=== PATIENT | female | born 1970 | race Caucasian/White ===

== ENCOUNTER 2024-01-05 06:28 | Emergency (ER) | payer BC, SELFPAY ==
[2024-01-05 06:39] VITALS: BP 171/92; PULSE 107; RESP 20; TEMP 36.3; O2SAT 98; BMI 46.0
[2024-01-05] MEDS: IPRATROPIUM/ALBUTEROL SULFATE 3 ML AMPUL.NEB IH (06:50)
[2024-01-05 06:51] VITALS: PULSE 105; O2SAT 98
[2024-01-05 06:56] VITALS: O2SAT 95
[2024-01-05 06:58] LABS: Adenovirus NOT DETECTED (NOT DETECTE); Bordetella parapertussis NOT DETECTED (NOT DETECTE); Coronavirus 229E NOT DETECTED (NOT DETECTE); Coronavirus HKU1 NOT DETECTED (NOT DETECTE); Coronavirus NL63 NOT DETECTED (NOT DETECTE); Coronavirus OC43 NOT DETECTED (NOT DETECTE); Human Metapneumovirus NOT DETECTED (NOT DETECTE); Human Rhinovirus/Enterovirus NOT DETECTED (NOT DETECTE); Influenza A NOT DETECTED (NOT DETECTE); Influenza B NOT DETECTED (NOT DETECTE); Mycoplasma pneumoniae NOT DETECTED (NOT DETECTE); Parainfluenza Virus 1 NOT DETECTED (NOT DETECTE); Parainfluenza Virus 2 NOT DETECTED (NOT DETECTE); Parainfluenza Virus 3 NOT DETECTED (NOT DETECTE); Parainfluenza Virus 4 NOT DETECTED (NOT DETECTE); Respiratory Syncytial Virus NOT DETECTED (NOT DETECTE); SARS-CoV-2 NOT DETECTED (NOT DETECTE)
--- NOTE | 2024-01-05 07:19 | XR_ITS ---
The [address] [address] Patient Name: MOOK JOHNSON MRN: [id number] date: 1970 Sex: F Assigned Patient Location: ER Current Patient Location: ED.MAIN Accession/Order Number: [id number] Exam Date: 01/05/2024 07:23 Report Date: 01/05/2024 07:44 At the request of: TONYA BRISENO Procedure: XR chest 1V EXAMINATION: XR chest 1V HISTORY: SOB COMPARISON: No relevant comparison available. TECHNIQUE: AP portable FINDINGS: LUNGS: No significant pulmonary parenchymal abnormalities. VASCULATURE: No increased pulmonary vasculature. PLEURA: No pneumothorax, effusion, or pleural thickening. CARDIAC: No cardiomegaly or cardiac silhouette abnormality. MEDIASTINUM: No visible mass or adenopathy. BONES: No fracture or visible bone lesion. OTHER: Negative. XR/XR chest 1V IMPRESSION: No acute cardiopulmonary process Electronically authenticated by: MAO PONCE Date: 01/05/2024 07:44
--- NOTE | 2024-01-05 07:19 | ED.SOB1 ---
HPI - SOB/Dyspnea General Chief Complaint: Shortness of Breath/Dyspnea Stated Complaint: COUGH Time Seen by Provider: 01/05/24 07:03 Source: patient Mode of arrival: walk-in Limitations: no limitations History of Present Illness HPI Narrative: 53-year-old female presents for cough. She has been sick for about 16 days but has gotten worse in the last week. The cough is generally nonproductive. Her voice is now hoarse. No hemoptysis and no known fever. No vomiting or diarrhea. She has had some sinus pressure as well. Related Data Home Medications ?Medication ?Instructions ?Recorded ?Confirmed alprazolam 0.5 mg tablet 0.5 mg PO TID PRN anxiety 01/05/24 01/05/24 amlodipine 5 mg tablet 5 mg PO DAILY 01/05/24 01/05/24 aspirin 81 mg chewable tablet 81 mg PO DAILY 01/05/24 01/05/24 (Aspirin Childrens) fluocinonide 0.05 % topical 1 applic topical DAILY 01/05/24 01/05/24 solution ketoconazole 2 % topical cream 1 applic topical DAILY 01/05/24 01/05/24 levothyroxine 175 mcg tablet 175 mcg PO DAILY 01/05/24 01/05/24 losartan 50 mg tablet 50 mg PO DAILY 01/05/24 01/05/24 metronidazole 1 % topical gel 1 applic topical DAILY 01/05/24 01/05/24 pantoprazole 40 mg tablet,delayed 40 mg PO DAILY 01/05/24 01/05/24 release Previous Rx's ?Medication ?Instructions ?Recorded albuterol sulfate 90 mcg/actuation 2 inh inhalation Q4H PRN shortness 01/05/24 aerosol inhaler of breath or wheezing #8.5 grams benzonatate 100 mg capsule 100 mg PO TID PRN cough #20 caps 01/05/24 prednisone 10 mg tablet See Rx Instructions .Route 01/05/24 .COMPLEX #30 tabs Allergies Allergy/AdvReac Type Severity Reaction Status Date / Time promethazine [From Phenergan] AdvReac Verified 01/05/24 06:44 Review of Systems ROS Narrative A ten point review of systems is negative except as noted above. Exam Narrative Exam Narrative: Nurses note and vital signs reviewed and patient is not hypoxic. General: The patient appears in no apparent respiratory distress. Patient is resting comfortably on cart. Skin: Warm, dry, no pallor noted. There is no rash noted. Head: Normocephalic, atraumatic Eye: Normal conjunctiva, no drainage Ears, Nose, Mouth, and Throat: oral mucosa is moist. Nares patent. Her voice is hoarse. Cardiovascular: Regular Rate and Rhythm Respiratory: Patient is in no distress, no accessory muscle use, lungs are clear to auscultation, no wheezing, rales or rhonchi. Back: non-tender GI: Soft and nontender Musculoskeletal: No joint swelling Neurological: A&O, normal speech Psychiatric: Cooperative Constitutional Vital Signs, click to edit/add: Last Vital Signs Temp 97.4 F L 01/05/24 06:39 Pulse 105 H 01/05/24 06:51 Resp 20 01/05/24 06:39 BP 171/92 H 01/05/24 06:39 Pulse Ox 95 01/05/24 06:56 O2 Del Method Room Air 01/05/24 06:56 Course Vital Signs Vital signs: Vital Signs Temperature 97.4 F L 01/05/24 06:39 Pulse Rate 107 H 01/05/24 06:39 Respiratory Rate 20 01/05/24 06:39 Blood Pressure 171/92 H 01/05/24 06:39 Pulse Oximetry 98 01/05/24 06:39 Oxygen Delivery Method Room Air 01/05/24 06:39 Temperature 97.4 F L 01/05/24 06:39 Pulse Rate 105 H 01/05/24 06:51 Respiratory Rate 20 01/05/24 06:39 Blood Pressure 171/92 H 01/05/24 06:39 Pulse Oximetry 95 01/05/24 06:56 Oxygen Delivery Method Room Air 01/05/24 06:56 MDM - SOB/Dyspnea MDM Narrative Medical decision making narrative: Respiratory panel and chest x-ray are negative. She was given IV Solu-Medrol and aerosol treatment. She was offered admission but does not feel that she needs it. She is discharged home on prednisone and Tessalon and albuterol. We discussed the need for an antibiotic and neither she nor I feel that she needs an antibiotic at this point. Treatment diagnosis and follow-up were discussed thoroughly Differential Diagnosis Differential diagnosis: Likely community acquired pneumonia and other (COVID, viral illness, influenza) Lab Data Attestation: I reviewed the patient's lab results. Labs: Lab Results 01/05/24 01/05/24 Range/Units 06:42 07:48 WBC 12.4 H (4.0-11.0) 10^3/uL RBC 4.35 (4.20-5.40) 10^6/uL Hgb 14.2 (12.0-16.0) g/dL Hct 41.2 (36.0-48.0) % MCV 94.7 (81.0-99.0) fL MCH 32.6 (26.7-34.0) pg MCHC 34.5 (29.9-35.2) g/dL RDW 11.9 (11.0-15.0) % Plt Count 359 (150-450) 10^3/uL MPV 9.8 (9.5-13.5) fL Neut % (Auto) 68.9 (43.0-75.0) % Lymph % (Auto) 20.9 (20.5-60.0) % [place] % (Auto) 7.5 (1.7-12.0) % Eos % (Auto) 1.4 (0.9-7.0) % Baso % (Auto) 0.6 (0.2-2.0) % Neut # (Auto) 8.5 H (1.4-6.5) 10^3/uL Lymph # (Auto) 2.6 (1.2-3.8) 10^3/uL [place] # (Auto) 0.9 H (0.3-0.8) 10^3/uL Eos # (Auto) 0.2 (0.0-0.7) 10^3/uL Baso # (Auto) 0.1 (0.0-0.1) 10^3/uL Abs Immat Gran (auto) 0.09 H (0.00-0.03) 10^3/uL Imm/Tot Granulo (auto) 0.7 H (0.0-0.5) % Sodium 140 (136-145) mmol/L Potassium 3.4 L (3.5-5.1) mmol/L Chloride 103 (98-107) mmol/L Carbon Dioxide 22.8 (21.0-32.0) mmol/L Anion Gap 17.6 BUN 14.0 (7.0-18.0) mg/dL Creatinine 1.02 (0.55-1.02) mg/dL Est GFR ( Amer) >60 (>=60) Est GFR (Non-Af Amer) 57 L (>=60) BUN/Creatinine Ratio 13.7 Glucose 109 H (74-106) mg/dL Calcium 9.2 (8.5-10.1) mg/dL Adenovirus (PCR) Not detected (NOT DETECTE) C. pneumoniae DNA (PCR) Not detected (NOT DETECTE) Coronavirus Type OC43 Not detected (NOT DETECTE) Coronavirus Type HKU1 Not detected (NOT DETECTE) Coronavirus Type 229E Not detected (NOT DETECTE) Coronavirus Type NL63 Not detected (NOT DETECTE) Human Metapneumovir PCR Not detected (NOT DETECTE) M. pneumoniae (PCR) Not detected (NOT DETECTE) Parainfluenza PCR Not detected (NOT DETECTE) Parainfluenza 2 (PCR) Not detected (NOT DETECTE) Parainfluenza 3 (PCR) Not detected (NOT DETECTE) Parainfluenza 4 (PCR) Not detected (NOT DETECTE) RSV (RT-PCR) Not detected (NOT DETECTE) Entero/Rhino (PCR) Not detected (NOT DETECTE) SARS-CoV-2 (PCR) Not detected (NOT DETECTE) Bordetella pertussis (PCR) Not detected (NOT DETECTE) B parapertussis DNA PCR Not detected (NOT DETECTE) Influenza Type A (PCR) Not detected (NOT DETECTE) Influenza Type B (PCR) Not detected (NOT DETECTE) Imaging Data Chest x-ray: Radiologist's impression: ITS Impressions Chest X-Ray 01/05/24 07:19 IMPRESSION: No acute cardiopulmonary process Electronically authenticated by: MAO PONCE Date: 01/05/2024 07:44 Discharge Plan Discharge Stand Alone Forms: Portal Instructions Chief Complaint: Shortness of Breath/Dyspnea Clinical Impression: Viral URI Patient Disposition: Home, Self-Care Time of Disposition Decision: 08:34 Condition: Good Mode of Transportation: Private Vehicle Prescriptions / Home Meds: New prednisone 10 mg tablet See Rx Instructions .ROUTE .COMPLEX Qty: 30 0RF Rx Instructions: 4 by mouth daily for three days then 3 by mouth daily for three days then 2 by mouth daily for three days then 1 by mouth daily for three days benzonatate 100 mg capsule 100 mg PO TID PRN (Reason: cough) Qty: 20 0RF albuterol sulfate 90 mcg/actuation HFA aerosol inhaler 2 inh inhalation Q4H PRN (Reason: shortness of breath or wheezing) Qty: 8.5 0RF No Action alprazolam 0.5 mg tablet 0.5 mg PO TID PRN (Reason: anxiety) amlodipine 5 mg tablet 5 mg PO DAILY fluocinonide 0.05 % solution 1 applic TOPICAL DAILY levothyroxine 175 mcg tablet 175 mcg PO DAILY losartan 50 mg tablet 50 mg PO DAILY pantoprazole 40 mg tablet,delayed release (DR/EC) 40 mg PO DAILY metronidazole 1 % gel 1 applic TOPICAL DAILY ketoconazole 2 % cream 1 applic TOPICAL DAILY aspirin [Aspirin Childrens] 81 mg tablet,chewable 81 mg PO DAILY Print Language: [place] Instructions: Upper Respiratory Infection (ED) Referrals: Physician,Non-Staff, MD [Primary Care Provider] - 1 week
[2024-01-05] MEDS: METHYLPREDNISOLONE SOD SUCC PF 125 MG/2 ML VIAL IVP (08:00)
[2024-01-05 08:01] LABS: Basophils Absolute Auto 0.1 10^3/uL (0.0-0.1); Basophils Percent Auto 0.6 % (0.2-2.0); Eosinophils Absolute Auto 0.2 10^3/uL (0.0-0.7); Eosinophils Percent Auto 1.4 % (0.9-7.0); Hematocrit 41.2 % (36.0-48.0); Hemoglobin 14.2 g/dL (12.0-16.0); Immature Granulocytes Abs Auto 0.09 10^3/uL (0.00-0.03); Immature Granulocytes Pct Auto 0.7 % (0.0-0.5); Lymphocytes Absolute Auto 2.6 10^3/uL (1.2-3.8); Lymphocytes Percent Auto 20.9 % (20.5-60.0); Mean Corpuscular HGB Conc 34.5 g/dL (29.9-35.2); Mean Corpuscular Hemoglobin 32.6 pg (26.7-34.0); Mean Corpuscular Volume 94.7 fL (81.0-99.0); Mean Platelet Volume 9.8 fL (9.5-13.5); Monocytes Absolute Auto 0.9 10^3/uL (0.3-0.8); Monocytes Percent Auto 7.5 % (1.7-12.0); Neutrophils Absolute Auto 8.5 10^3/uL (1.4-6.5); Neutrophils Percent Auto 68.9 % (43.0-75.0); Platelet Count 359 10^3/uL (150-450); Red Blood Count 4.35 10^6/uL (4.20-5.40); Red Cell Distribution Width 11.9 % (11.0-15.0); White Blood Count 12.4 10^3/uL (4.0-11.0)
[2024-01-05 08:08] LABS: Anion Gap 17.6; BUN Creatinine Ratio 13.7; Calcium 9.2 mg/dL (8.5-10.1); Carbon Dioxide 22.8 mmol/L (21.0-32.0); Chloride 103 mmol/L (98-107); Estimated GFR (African America >60 (>=60); Estimated GFR (Non-African Ame 57 (>=60); Glucose 109 mg/dL (74-106); Potassium 3.4 mmol/L (3.5-5.1); Sodium 140 mmol/L (136-145)
== END 2024-01-05 08:42 | disposition home or self-care (01) ==
PROVIDERS: Internal Medicine; Emergency Provider Emergency Medicine
DX: J06.9 Acute upper respiratory infection, unspecified (principal); Z20.822 Contact with and (suspected) exposure to COVID-19; Z79.82 Long term (current) use of aspirin; Z79.899 Other long term (current) drug therapy; Z79.890 Hormone replacement therapy
CPT/HCPCS: 0202U; 36415; 71045; 80048; 85025; 94640; 96374; 99284; J2930

== ENCOUNTER 2024-03-28 07:33 | Outpatient (OUT) | payer BC, SELFPAY ==
[2024-03-28 07:56] LABS: Basophils Absolute Auto 0.1 10^3/uL (0.0-0.1); Basophils Percent Auto 0.9 % (0.2-2.0); Eosinophils Absolute Auto 0.1 10^3/uL (0.0-0.7); Eosinophils Percent Auto 1.1 % (0.9-7.0); Hematocrit 42.9 % (36.0-48.0); Hemoglobin 14.7 g/dL (12.0-16.0); Immature Granulocytes Abs Auto 0.03 10^3/uL (0.00-0.03); Immature Granulocytes Pct Auto 0.3 % (0.0-0.5); Lymphocytes Percent Auto 30.9 % (20.5-60.0); Mean Corpuscular HGB Conc 34.3 g/dL (29.9-35.2); Mean Corpuscular Hemoglobin 32.5 pg (26.7-34.0); Mean Corpuscular Volume 94.7 fL (81.0-99.0); Mean Platelet Volume 9.7 fL (9.5-13.5); Monocytes Absolute Auto 0.6 10^3/uL (0.3-0.8); Monocytes Percent Auto 6.5 % (1.7-12.0); Neutrophils Absolute Auto 5.8 10^3/uL (1.4-6.5); Neutrophils Percent Auto 60.3 % (43.0-75.0); Platelet Count 329 10^3/uL (150-450); Red Blood Count 4.53 10^6/uL (4.20-5.40); Red Cell Distribution Width 11.5 % (11.0-15.0); White Blood Count 9.6 10^3/uL (4.0-11.0)
[2024-03-28 08:08] LABS: Microalbumin Urine Random 12.5 mg/dL (<=30.0)
[2024-03-28 10:23] LABS: Free T4 1.27 ng/dL (0.76-1.46)
[2024-03-28 10:33] LABS: Alanine Aminotransferase 24 U/L (14-59); Albumin Globulin Ratio 1.1; Albumin Level 3.8 g/dL (3.4-5.0); Alkaline Phosphatase 70 U/L (46-116); Anion Gap 12.3; Aspartate Amino Transferase 11 U/L (15-37); BUN Creatinine Ratio 15.3; Bilirubin Total 0.3 mg/dL (0.2-1.0); Calcium 8.8 mg/dL (8.5-10.1); Carbon Dioxide 26.5 mmol/L (21.0-32.0); Chloride 106 mmol/L (98-107); Chol HDL Ratio 4.4; Cholesterol 250 mg/dL (<=200); Estimated GFR (African America >60 (>=60); Estimated GFR (Non-African Ame >60 (>=60); Globulin 3.4 g/dL; Glucose 99 mg/dL (74-106); HDL Cholesterol 57 mg/dL (40-60); Potassium 3.8 mmol/L (3.5-5.1); Sodium 141 mmol/L (136-145); Thyroid Stimulating Hormone 0.379 uIU/mL (0.358-3.740); Total Protein 7.2 g/dL (6.4-8.2); Triglycerides 81 mg/dL (<=150); VLDL CHOLESTEROL 16.2 mg/dL
== END 2024-03-28 07:34 | disposition home or self-care (01) ==
LOC: LAB 07:36
PROVIDERS: Visit Provider Family Medicine
DX: Z00.00 Encounter for general adult medical examination without abnormal findings (principal); I10 Essential (primary) hypertension; E78.5 Hyperlipidemia, unspecified
CPT/HCPCS: 36415; 80053; 80061; 82043; 84439; 84443; 85025

== ENCOUNTER 2024-05-18 09:01 | Emergency (ER) | payer BC, SELFPAY ==
[2024-05-18 09:15] VITALS: BP 159/94; PULSE 92; TEMP 36.4; O2SAT 95; BMI 45.2
--- OUTSIDE RECORDS SUMMARY | 2024-05-18 09:30 | XMS_ITS | CCD ---
Author Organization [facility] Care Team Providers Care [employer] Name Role Phone Zach Liu Unavailable Paloma Sagastume Unavailable Victoria Trimble Unavailable YASMANY VAUGHN Admitting Unavailable YASMANY VAUGHN Attending Unavailable NAI, DR VICTORIA Demarco Primary Care Unavailable LINNETTE, DR MADHURI Weaver Consulting Unavailable YASMANY VAUGHN Consulting Unavailable ABIMBOLA YUAN Admitting Unavailable ABIMBOLA YUAN Attending Unavailable NAI, DR VICTORIA Demarco Primary Care Unavailable GRACY ., DR BANDA Admitting Unavailable GRACY ., DR BANDA Attending Unavailable TRIMBLE, DR VICTORIA Demarco Primary Care Unavailable ASADY ., DR BANDA Consulting Unavailable NAI, DR VICTORIA Demarco Admitting Unavailable NAI, DR VICTORIA Demarco Attending Unavailable NAI, DR VICTORIA Demarco Primary Care Unavailable NAI, DR VICTORIA Demarco Consulting Unavailable Collin Martin Unavailable MD Leonard Wong Attending Provider Leonard Wong Admitting Unavailable Leonard Wong Attending Unavailable Victoria Trimble Primary Care Unavailable Zach Liu Attending Unavailable Victoria Trimble Primary Care Unavailable Zach Liu Admitting Unavailable Victoria Trimble Primary Care Unavailable Yahir - Bolivar BABCOCK Admitting Unavailable Bolivar Gilliam Attending Unavailable LEONARD CASTELAN Attending Unavailable LEONARD CASTELAN Attending Unavailable LEONARD CASTELAN Attending Unavailable VICTORIA TRIMBLE Unavailable LEONARD CASTELAN Attending Unavailable RAMON VOGT Attending Unavailable Allergies Allergy Classification Reported Allergen(s) Allergy Type Date of Onset Reaction(s) Facility (20 sources) Hmg-Coa Reductase Inhibitors (Statins) Propensity to adverse reactions Unknown [facility] Other (20 sources) Promethazine Drug Allergy 12-23-19 23 Unknown, [facility] (20 sources) paper tape Propensity to adverse reactions Unknown [employer] Other (2 sources) Adhesive agent Drug allergy (disorder) 09-18-20 15 [facility] Repository (2 sources) Levamisole Drug Allergy 04-02-20 14 [facility] Repository (3 sources) Adhesive Tape Drug allergy Unknown [employer] Other (5 sources) Simvastatin Drug Allergy 12-23-19 23 Unknown, [facility] (3 sources) venlafaxine Drug Allergy Unknown [employer] Other (3 sources) venlafaxine Drug Allergy 03-20-20 17 Unknown [facility] Other (3 sources) Allergies Reconciled Propensity to adverse reactions Unknown [employer] [facility] Other (3 sources) patient allergy list reviewed by nurse or physicia Propensity to adverse reactions 12-12-19 17 Comment:Done [employer] Other (3 sources) Adhesive Tape Drug allergy (disorder) 12-23-19 23 [facility] Repository (1 source) Promethazine Drug Allergy 12-23-19 23 [facility] Repository (1 source) Simvastatin Drug Allergy 12-23-19 23 [facility] Repository (3 sources) [id number] Reductase Inhibitor Drug allergy (disorder) 12-23-19 23 [facility] Repository Medications Current Medications Medication Drug Class(es) Dates Sig (Normalized) Sig (Original) 3 ML semaglutide 1.34 MG/ML Pen Injector [Ozempic] (2 sources) Start: 06-16-2022 inject 1 mg by subcutaneous injection every week Ozempic (1 MG/DOSE) 4 MG/3ML 1 mg as directed Subcutaneous weekly for 30 days May, Active 3 ML semaglutide 2.68 MG/ML Pen Injector [Ozempic] (2 sources) Start: 07-28-2022 inject 2 mg by subcutaneous injection every week Ozempic (2 MG/DOSE) 8 MG/3ML 2 mg Subcutaneous weekly for 30 days Jul, Active ALPRAZolam 0.5 mg oral tablet (20 sources) Benzodiazepine Start: 02-15-2024 take 0.5 mg by mouth once daily Alprazolam Active 0.5 MG PO Daily February 15, 2024 9:42am Start: 12-03-2023 End: 02-15-2024 take 0.5 mg by mouth three times daily Alprazolam Discontinued 0.5 MG PO Three times daily December 03, 2023 1:00am February 15, 2024 9:42am Start: 09-17-2023 take 1 tablet by radha th three times daily as needed Xanax 0.5 MG 1 tablet Orally three times daily, as needed for 30 days Aug, Active Start: 05-18-2023 take 1 tablet by radha th three times daily as needed Xanax 0.5 MG 1 tablet Orally three times daily, as needed for 30 days Apr, Active Start: 04-24-2023 take 1 tablet by radha three times daily as needed Xanax 0.5 MG 1 tablet Orally three times daily, as needed for 90 days Apr, Active Start: 03-20-2023 take 1 tablet by radha th three times daily as needed Xanax 0.5 MG 1 tablet Orally three times daily, as needed for 90 days Mar, Active Start: 02-10-2023 take 1 tablet by radha th three times daily as needed Xanax 0.5 MG 1 tablet Orally three times daily, as needed for 90 days Jan, Active Start: 01-13-2023 take 1 tablet by radha th three times daily as needed Xanax 0.5 MG 1 tablet Orally three times daily, as needed for 90 days Dec, Active Start: 12-02-2022 take 1 tablet by radha th three times daily as needed Xanax 0.5 MG 1 tablet Orally three times daily, as needed for 90 days Nov, Active Xanax 0.5 MG 1 t ablet Orally prn Active amLODIPine (20 sources) Dihydropyridine Calcium Channel Olga Start: 12-18-2023 Amlodipine Active 0 .ROUTE .COMPLEX December 18, 2023 3:28pm TAKE 1 TABLET DAILY Start: 12-18-2023 End: 12-18-2023 take 5 mg by mouth once daily Amlodipine Discontinued 5 MG PO Daily December 18, 2023 1:00am December 18, 2023 3:29pm take 1 tablet by radha th every twenty-four hours amLODIPine Besylate 5 MG 1 tablet Orally Once a day for 90 days Active amLODIPine Besyl ate 2.5 MG TAKE 1 TABLET BY MOUTH EVERY DAY FOR 30 DAYS for 30 Active aspirin 81 mg delayed release oral tablet (1 source) Platelet Aggregation Inhibitor, Nonsteroidal Anti-inflammatory Drug Start: 02-22-2024 Aspirin (Adult Low Dose Aspirin) 81 mg tablet,delayed release (DR/EC) Active 81 MG PO Daily February 22, 2024 12:00am docusate sodium 100 mg oral capsule (20 sources) Start: 02-22-2024 take 1 capsule by mouth twice daily as needed Docusate Sodium Active 100 MG PO Twice daily February 22, 2024 8:37am [employer] capsule as needed Orally Once a day; Note: Source Status: Taking; Provider: Nai Kessler ( ) Start: 02-19-2024 End: 02-22-2024 take 1 capsule by mouth once daily as needed Docusate Sodium Discontinued 1 CAP PO Daily February 19, 2024 12:00am February 22, 2024 8:39am [employer] capsule as needed Orally Once a day; Note: Source Status: Taking; Provider: Nai Kessler ( ) take 1 capsule by mo ut every twenty-four hours Colace 100 MG 1 capsule as needed Orally Once a day Active Fiber (17 sources) take 1 tablet by mouth once daily Fiber 625 MG 1 Tablet Orally Daily Active ibuprofen 800 mg oral tablet (20 sources) Nonsteroidal Anti-inflammatory Drug Start: 02-19-2024 take 1 tablet by mouth three times daily as needed Ibuprofen Active 800 MG PO Three times daily February 19, 2024 12:00am FreeText[employer]: TAKE 1 TABLET BY MOUTH THREE TIMES A DAY NEEDED; Note: Source Status: Start; Refills: 1; Qty: 90 Tablet; Provider: Nai Kessler ( ) take 1 tablet by radha th three times daily as needed Ibuprofen 800 MG TAKE 1 TABLET BY MOUTH THREE TIMES A DAY NEEDED for 30 Active levothyroxine sodium 0.175 mg oral capsule (20 sources) l-Thyroxine Start: 02-22-2024 take 175 ug by mouth once daily Levothyroxine Active 175 MCG PO Daily February 22, 2024 12:00am Levothyroxine So dium 175 MCG TAKE 1 TABLET BY MOUTH EVERY DAY IN THE MORNING ON EMPTY STOMACH FOR 90 DAYS for 90 Active take 1 tablet by radha th once daily in the morning Synthroid 150 MCG 1 tablet in the mornin g on an empty stomach Orally Once a day Active loratadine 10 mg oral tablet (20 sources) Start: 02-19-2024 take 1 tablet by mouth once daily Loratadine Active 1 TAB PO Daily February 19, 2024 12:00am [employer] tablet Orally Once a day; Note: Source Status: Taking; Provider: Nai Kessler ( ) take 1 tablet by mouth once glen y Loratadine 10 MG 1 tablet Orally Once a day Active losartan potassium 50 mg oral tablet (20 sources) Angiotensin 2 Receptor Olga Start: 02-19-2024 take 1 tablet by mouth once daily Losartan Active 50 MG PO Daily February 19, 2024 12:00am Free[employer]: TAKE 1 TABLET BY MOUTH EVERY DAY; Note: Source Status: Refill; Refills: 3; Qty: 90 Tablet; Provider: Nai Demarco take 1 tablet by mouth once glen y Losartan Potassium 50 MG TAKE 1 TABLET BY MOUTH EVERY DAY for 90 Active omeprazole 20 mg delayed release oral capsule (8 sources) Proton Pump Inhibitor take 1 capsule by mouth once daily Omeprazole 20 MG 1 capsule 30 minutes before morning meal Orally Once a day Active ondansetron 4 mg disintegrating oral tablet (19 sources) Serotonin-3 Receptor Antagonist Start: take 4 mg by mouth every eight hours Ondansetron Active 4 MG PO Every 8 hours 15 December 03, 2023 1:00am take 1 tablet by mouth once glen y Zofran 4 MG 1 tablet Orally Once a day for 30 day(s) Active pantoprazole 40 mg delayed release oral tablet (18 sources) Proton Pump Inhibitor Start: 02-19-2024 take 1 tablet by mouth once daily Pantoprazole Active 1 TAB PO Daily February 19, 2024 12:00am Free[employer]: TAKE 1 TABLET BY MOUTH EVERY DAY; Note: Source Status: Refill; Refills: 3; Qty: 90 Tablet; Provider: Nai Demarco take 1 tablet by mouth once glen y Pantoprazole Sodium 40 MG TAKE 1 TABLET BY MOUTH EVERY DAY for 90 days Active 0.25 mg, 0.5 mg dose 1.5 ml semaglutide 1.34 mg/ml pen injector (4 sources) Ozempic (0.25 or 0.5 MG/DOSE) 2 MG/1.5ML 0.5 mg Subcutaneous weekly for 30 days Active Ozempic (0.25 or 0.5 MG/DOSE) 2 MG/1.5ML 0.25 mg for one month and then increase to 0.5 mg dose Subcutaneous weekly for 30 days Active Completed/Discontinued Medications Medication Drug Class(es) Dates Sig (Normalized) Sig (Original) calcium polycarbophil 625 mg oral tablet (9 sources) Start: 02-19-2024 End: 02-22-2024 take 1 tablet by mouth once daily Calcium Polycarbophil (Fiber (Calcium Polycarbophil)) 625 mg tablet Discontinued 625 MG PO Daily February 19, 2024 12:00am February 22, 2024 8:37am [employer] Tablet Orally Daily; Note: Source Status: Taking; Provider: Nai Kessler ( ) take 1 tablet by radha th every twenty-four hours Fiber 625 MG 1 Tablet Orally Daily Active escitalopram 10 mg oral tablet (20 sources) Serotonin Reuptake Inhibitor Start: 02-19-2024 End: 02-22-2024 take 1 tablet by mouth once daily Escitalopram Oxalate Discontinued 10 MG PO Daily February 19, 2024 12:00am February 22, 2024 8:37am [employer] tablet Orally Once a day; Note: Source Status: Refill; Refills: 3; Qty: 90 Tablet; Provider: Nai Demarco take 1 tablet by radha th every twenty-four hours Lexapro 10 MG 1 tablet Orally Once a day for 90 days Active 24 hr phentermine 7.5 mg / topiramate 46 mg extended release oral capsule (18 sources) Sympathomimetic Amine Anorectic Start: 02-19-2024 End: 02-22-2024 take 1 capsule by mouth once daily Phentermine-Topiramate (Qsymia) 7.5-46 mg capsule, ER multiphase 24 hr Discontinued 1 CAP PO Daily February 19, 2024 12:00am February 22, 2024 8:38am [employer] capsule Orally Once a day; Note: Source Status: Taking; Refills: 1; Qty: 30 Capsule; Provider: Noe Holden Start: 12-22-2022 take 1 capsule by mo [facility] every twenty-four hours Qsymia 7.5-46 MG 1 capsule Orally Once a day for 30 days Dec, Active Start: 11-10-2022 take 1 capsule by mo uth every twenty-four hours Qsymia 7.5-46 MG 1 capsule Orally Once a day for 30 days Oct, Active rosuvastatin calcium 10 mg oral tablet (11 sources) HMG-CoA Reductase Inhibitor Start: 02-19-2024 End: 02-22-2024 take 1 tablet by mouth once daily Rosuvastatin Discontinued 10 MG PO Daily February 19, 2024 12:00am February 22, 2024 8:38am [employer] tablet Orally Once a day; Note: Source Status: Start; Refills: 3; Qty: 90 Tablet; Provider: Nai Demarco Start: 02-02-2023 take 1 tablet by radha every twenty-four hours Rosuvastatin Calcium 10 MG 1 tablet Orally Once a day for 90 days Jan, Active sulfamethoxazole 800 mg / trimethoprim 160 mg oral tablet (1 source) Dihydrofolate Reductase Inhibitor Antibacterial, Sulfonamide Antimicrobial Start: 02-01-2024 End: 02-22-2024 take 1 tablet by mouth twice daily Sulfamethoxazole-Trimethoprim Discontinued 1 TAB PO Twice daily February 01, 2024 12:00am February 22, 2024 8:38am Problems Active Problems Problem Classification Problem Date Documented Date Episodic/Chronic Acquired foot deformities (3 sources) Valgus deformity, not elsewhere classified, unspecified ankle; Translations: [Valgus deformity, not elsewhere classified, unspecified ankle] Episodic Administrative/social admission (1 source) Encounter for examination for admission to educational institution; Translations: [Encounter for examination for admission to educational institution] Episodic Allergic reactions (3 sources) Allergic contact dermatitis; Translations: [Allergic contact dermatitis, unspecified cause] Episodic Anxiety disorders (8 sources) Anxiety disorder; Translations: [Other specified anxiety disorders] 12-03-2023 Chronic Asthma (3 sources) Exacerbation of asthma; Translations: [Unspecified asthma with (acute) exacerbation] Chronic Chronic obstructive pulmonary disease and bronchiectasis (3 sources) Bronchitis; Translations: [Bronchitis, not specified as acute or chronic] Episodic Diabetes mellitus without complication (20 sources) Impaired fasting glycemia; Translations: [Impaired fasting glucose] Onset: 03-20-2022 Resolved: 06-16-2022 Episodic Disorders of lipid metabolism (20 sources) Mixed hyperlipidemia; Translations: [Mixed hyperlipidemia] Onset: 03-20-2022 Resolved: 06-16-2022 Chronic Esophageal disorders (20 sources) Gastroesophageal reflux disease; Translations: [Gastro-esophageal reflux disease without esophagitis] Chronic Essential hypertension (20 sources) Hypertensive disorder; Translations: [Essential (primary) hypertension] Onset: 11-10-2013 Resolved: 06-16-2022 Chronic Fluid and electrolyte disorders (20 sources) Hypokalemia; Translations: [Hypokalemia] Episodic Headache; including migraine (20 sources) Migraine; Translations: [Migraine, unspecified, not intractable, without status migrainosus] Chronic Joint disorders and dislocations; trauma-related (3 sources) Derangement of knee; Translations: [Unspecified internal derangement of right knee] Chronic Joint disorders and dislocations; trauma-related (3 sources) Acute tear of medial meniscus of left knee; Translations: [Complex tear of medial meniscus, current injury, left knee, subsequent encounter] Episodic Menstrual disorders (3 sources) Excessive and frequent menstruation; Translations: [Excessive and frequent menstruation with regular cycle] Chronic Mood disorders (20 sources) Major depression, single episode; Translations: [Major depressive disorder, single episode, unspecified] Onset: 11-10-2013 Resolved: 06-16-2022 Chronic Mycoses (3 sources) Onychomycosis due to dermatophyte ; Translations: [Tinea unguium] Episodic Nausea and vomiting (17 sources) Nausea; Translations: [Nausea] Episodic Osteoarthritis (20 sources) Osteoarthritis of knee; Translations: [Osteoarthritis of knee, unspecified] Onset: 03-20-2022 Resolved: 06-16-2022 Chronic Other acquired deformities (3 sources) Joint contracture of the ankle and/or foot; Translations: [Contracture, right ankle] Chronic Other bone disease and musculoskeletal deformities (2 sources) Chondromalacia; Translations: [Chondromalacia, right knee] Episodic Other bone disease and musculoskeletal deformities (3 sources) Chondromalacia of left knee; Translations: [Chondromalacia, left knee] Episodic Other bone disease and musculoskeletal deformities (1 source) Chondromalacia, right knee; Translations: [Chondromalacia, right knee] Episodic Other connective tissue disease (2 sources) Tibialis tendinitis; Translations: [Posterior tibial tendinitis, right leg] Episodic Other connective tissue disease (3 sources) Pain in right foot; Translations: [Pain in right foot] Episodic Other connective tissue disease (3 sources) Plantar fascial fibromatosis; Translations: [Plantar fascial fibromatosis] Episodic Other connective tissue disease (3 sources) Disorder of musculoskeletal system; Translations: [Other symptoms and signs involving the musculoskeletal system] Episodic Other connective tissue disease (1 source) Posterior tibial tendinitis, right leg; Translations: [Posterior tibial tendinitis, right leg] Episodic Other female genital disorders (2 sources) Noninflammatory disorder of the vagina; Translations: [Other specified noninflammatory disorders of vagina] Episodic Other female genital disorders (1 source) Other specified noninflammatory disorders of vagina; Translations: [Other specified noninflammatory disorders of vagina] Episodic Other non-traumatic joint disorders (3 sources) Lower limb joint arthritis; Translations: [Osteoarthrosis, unspecified whether generalized or localized, lower leg] Onset: 03-19-2016 Chronic Other non-traumatic joint disorders (3 sources) Arthralgia of the lower leg; Translations: [Pain in right knee] Episodic Other non-traumatic joint disorders (3 sources) Knee joint effusion; Translations: [Effusion, right knee] Episodic Other non-traumatic joint disorders (2 sources) Instability of joint of right ankle; Translations: [Other instability, right ankle] Episodic Other non-traumatic joint disorders (3 sources) Arthralgia of the ankle and/or foot; Translations: [Pain in right ankle and joints of right foot] Episodic Other non-traumatic joint disorders (3 sources) Other specified joint disorders, right ankle and foot; Translations: [Other specified joint disorders, right ankle and foot] Episodic Other non-traumatic joint disorders (1 source) Other instability, right ankle; Translations: [Other instability, right ankle] Episodic Other nutritional; endocrine; and metabolic disorders (20 sources) Metabolic syndrome X; Translations: [Metabolic syndrome] Chronic Other nutritional; endocrine; and metabolic disorders (20 sources) Morbid obesity; Translations: [Morbid (severe) obesity due to excess calories] Chronic Other nutritional; endocrine; and metabolic disorders (20 sources) Body mass index 40+ - severely obese; Translations: [Body mass index (BMI) 45.0-49.9, adult] Onset: 10-28-2018 Chronic Other nutritional; endocrine; and metabolic disorders (5 sources) Body mass index (BMI) 45.0-49.9, adult; Translations: [Body mass index (BMI) 45.0-49.9, adult] Onset: 03-20-2022 Resolved: 06-16-2022 Chronic Other nutritional; endocrine; and metabolic disorders (5 sources) Metabolic syndrome; Translations: [Metabolic syndrome] Onset: 03-20-2022 Resolved: 06-16-2022 Chronic Other nutritional; endocrine; and metabolic disorders (5 sources) Obesity, unspecified; Translations: [Obesity] Onset: 05-01-2022 Resolved: 05-01-2022 Chronic Other nutritional; endocrine; and metabolic disorders (20 sources) Obesity; Translations: [Obesity, unspecified] Chronic Other nutritional; endocrine; and metabolic disorders (4 sources) Body mass index (BMI) 40.0-44.9, adult Chronic Other nutritional; endocrine; and metabolic disorders (3 sources) Obese class II; Translations: [Body mass index 39.0-39.9, adult] Onset: 09-03-2017 Chronic Other screening for suspected conditions (not mental disorders or infectious disease) (8 sources) Abnormal findings on diagnostic imaging of breast; Translations: [Other abnormal and inconclusive findings on diagnostic imaging of breast] 02-22-2024 Episodic Other skin disorders (3 sources) Ingrowing nail; Translations: [Ingrowing nail] Episodic Other upper respiratory disease (3 sources) Acute bronchospasm; Translations: [Acute bronchospasm] Episodic Residual codes; unclassified (20 sources) Insomnia; Translations: [Insomnia, unspecified] Episodic Residual codes; unclassified (3 sources) Family history of stroke; Translations: [Family history of stroke] Episodic Residual codes; unclassified (1 source) Insomnia, unspecified; Translations: [Insomnia] Episodic Skin and subcutaneous tissue infections (6 sources) Cellulitis of toe of right foot; Translations: [Cellulitis of right toe] Episodic Thyroid disorders (20 sources) Hypothyroidism; Translations: [Hypothyroidism, unspecified] Onset: 11-10-2013 Chronic Unclassified (1 source) Localized swelling, mass and lump, left upper limb; Translations: [Localized swelling, mass and lump, left upper limb] Onset: 11-02-2023 Unclassified (1 source) Dietary counseling and surveillance; Translations: [Dietary counseling and surveillance] Onset: 12-23-2022 Past or Other Problems Problem Classification Problem Date Documented Date Episodic/Chronic Acute and chronic tonsillitis (3 sources) Acute tonsillitis; Translations: [Acute tonsillitis, unspecified] Onset: 11-10-2013 Episodic Acute bronchitis (3 sources) Acute bronchitis; Translations: [Acute bronchitis, unspecified] Onset: 05-16-2015 Episodic Other lower respiratory disease (2 sources) Cough; Translations: [Cough, unspecified] Onset: 05-16-2015 Episodic Other non-traumatic joint disorders (4 sources) Pain in right ankle and joints of right foot; Translations: [PAIN IN RIGHT ANKLE] Onset: 04-22-2022 Episodic Other non-traumatic joint disorders (2 sources) Shoulder joint pain; Translations: [Pain in left shoulder] Onset: 2019 Episodic Other non-traumatic joint disorders (1 source) Pain in left shoulder; Translations: [Pain in left shoulder] Onset: 2019 Episodic Other upper respiratory infections (6 sources) Acute sinusitis; Translations: [Acute sinusitis, unspecified] Onset: 05-16-2015 Episodic Otitis media and related conditions (3 sources) Acute secretory otitis media; Translations: [Other acute nonsuppurative otitis media, left ear] Onset: 09-03-2017 Episodic Spondylosis; intervertebral disc disorders; other back problems (3 sources) Neck pain; Translations: [Cervicalgia] Onset: 2019 Episodic Unclassified (1 source) Body Mass Index 40.0-44.9, adult; Translations: [Body Mass Index 40.0-44.9, adult] Onset: 10-28-2018 Unclassified (1 source) Cough, unspecified; Translations: [Cough, unspecified] Onset: 05-16-2015 Results Test Name Value Interpretation Reference Range Facility Laboratory - Chemistry and C hemistry - challengeon 02-01-2024 Bilirubin Ql (U) Negative [facility] Glucose (U) [Mass/Vol] Negative [facility] Ketones Ql (U) Negative [facility] pH (U) 5 [pH] [facility] Specific gravity (U) [Rel density] 1.010 [facility] Urobilinogen (U) [Mass/Vol] 0.2 mg/dL [facility] Laboratory - Specimen inform ationon 02-01-2024 Appearance (U) Cloudy [facility] Color (U) Yellow [facility] Laboratory - Urinalysison Leukocyte esterase Test strip Ql (U) ++ [facility] Nitrite Ql (U) Positive [facility] Protein Ql (U) ++ [facility] No Panel Informationon 01-31 Urine Occult Blood Negative [facility] Stiven 11-02-2023 L Specimen: [id number] Received: 11/02/23 Status: MIGNONCinthia Vega Num: [id number] Spec Type: Surgical Subm Dr: Leonard Wong MD Tissues: A Soft Tissue/Surgical Margin-Other than Tumor,Mass,Lip or Valorie (LT SHOULDER MA Procedures: ROGELIO, Gross/Micro L4 Age/ Patient Sex Location Account Attending Physician Jodi Diop 53/F [place] [id number] Leonard Wong MD SPEC NUM: [id number] RECD: 11/02/23 STATUS: FREDDIE VEGA NUM: [id number] GRISEL: 11/02/[address] [facility] DR: Leonard Wong MD ENTERED: 11/02/23 [facility] DR: LIANA TYPE: Surgical DEPT: S ORDERED: ROGELIO, Gross/Micro L4 ORDERED: ROGELIO, Gross/Micro L4 Pathological Diagnosis Soft tissue, left shoulder, excision: - Epidermal inclusion cyst Clinical Information Left shoulder mass Gross Description Received in formalin labeled with the patient's name, date of and left shoulder mass is a 0.9 x 0.3 cm ellipse of dunn-white skin excised to a depth of 1.3 cm. The specimen is inked and sectioned revealing a cystic structure measuring 0.7 cm in greatest dimension and containing peralta-white, gritty debris. Entirely submitted in one cassette labeled A1. Microscopic Description One H E slide reviewed. The microscopic examination confirms the diagnosis. CPT Codes 88555 Specimen: [id number] Received: 11/02/23 Status: FREDDIE Vega Num: [id number] Spec Type: Surgical Subm Dr: Leonard Wong MD Tissues: A Soft Tissue/Surgical Margin-Other than Tumor,Mass,Lip or Valorie (LT SHOULDER MA Procedures: Rusty MERCADO/Amalia L4 Patient: Jodi Diop [id number] (Continued) Signed (signatur e on file) Zora Sorto MD 11/03/23917 [facility] CBC AUTO DIFFon 04-21-2022 BASO # 0.1 103/ul Normal 0.0-0.1 [facility] Comment on above: Performed By: #### C BC #### [facility] [address] [place] [address] Dr. Wilder Sandoval Basophils/100 WBC (Bld) 1.1 % Normal 0.2-2.0 [facility] Comment on above: Performed By: #### C BC #### [facility] [address] [place] [address] Dr. Wilder Sandoval EO # 0.1 103/ul Normal 0.0-0.7 [facility] Comment on above: Performed By: #### C BC #### [facility] [address] [place] [address] Dr. Wilder Sandoval Eosinophils/100 WBC (Bld) 1.3 % Normal 0.9-7.0 [facility] Comment on above: Performed By: #### C BC #### [facility] [address] [place] [address] Dr. Wilder Sandoval Erythrocyte distribution width (RBC) [Ratio] 11.9 % Normal 11.0-15.0 [facility] Comment on above: Performed By: #### C BC #### [facility] [address] [place] [address] Dr. Wilder Sandoval Hematocrit (Bld) [Volume fraction] 42.2 % Normal 36.0-48.0 [facility] Comment on above: Performed By: #### C BC #### [facility] [address] [place] [address] Dr. Wilder Sandoval Hemoglobin (Bld) [Mass/Vol] 14.3 g/dL Normal 12.0-16.0 [facility] Comment on above: Performed By: #### C BC #### [facility] [address] [place] [address] Dr. Wilder Sandoval IG # 0.05 10e3/ul Critically high 0.00-0.03 [facility] Comment on above: Performed By: #### C BC #### [facility] [address] [place] [address] Dr. Wilder Sandoval IG % 0.6 % Critically high 0.0-0.5 [facility] Comment on above: Performed By: #### C BC #### [facility] [address] [place] [address] Dr. Wilder Sandoval LYMPH # 2.6 103/ul Normal 1.2-3.8 [facility] Comment on above: Performed By: #### C BC #### [facility] [address] [place] [address] Dr. Wilder Sandoval Lymphocytes/100 WBC (Bld) 31.3 % Normal 20.5-60.0 [facility] Comment on above: Performed By: #### C BC #### [facility] [address] [place] [address] Dr. Wilder Sandoval MANUAL DIFF REQ NO Normal [facility] Comment on above: Performed By: #### C BC #### [facility] [address] [place] [address] Dr. Wilder Sandoval MCH (RBC) [Entitic mass] 32.1 pg Normal 26.7-34.0 [facility] Comment on above: Performed By: #### C BC #### [facility] [address] [place] [address] Dr. Wilder Sandoval MCHC (RBC) [Mass/Vol] 33.9 g/dL Normal 29.9-35.2 [facility] Comment on above: Performed By: #### C BC #### [facility] [address] [place] [address] Dr. Wilder Sandoval MCV (RBC) [Entitic vol] 94.6 fL Normal 81.0-99.0 [facility] Comment on above: Performed By: #### C BC #### [facility] [address] [place] [address] Dr. Wilder Sandoval MONO # 0.7 103/ul Normal 0.3-0.8 [facility] Comment on above: Performed By: #### C BC #### [facility] [address] [place] [address] Dr. Wilder Sandoval Monocytes/100 WBC (Bld) 8.3 % Normal 1.7-12.0 [facility] Comment on above: Performed By: #### C BC #### [facility] [address] [place] [address] Dr. Wilder Sandoval NEUT # 4.9 103/ul Normal 1.4-6.5 [facility] Comment on above: Performed By: #### C BC #### [facility] [address] [address] [address] Wilder Sandoval Neutrophils/100 WBC (Bld) 57.4 % Normal 43.0-75.0 [facility] Comment on above: Performed By: #### C BC #### [facility] [address] [address] [address] Wilder Sandoval Platelet mean volume (Bld) [Entitic vol] 9.8 fL Normal 9.5-13.5 [facility] Comment on above: Performed By: #### C BC #### [facility] [address] [address] [address] Wilder Sandoval PLT 344 103/ul Normal 150-450 [facility] Comment on above: Performed By: #### C BC #### [facility] [address] [place] [address] Dr. Wilder Sandoval RBC 4.46 106/ul Normal 4.20-5.40 [facility] Comment on above: Performed By: #### C BC #### [facility] [address] [place] [address] Dr. Wilder Sandoval WBC 8.4 103/ul Normal 4.0-11.0 [facility] Comment on above: Performed By: #### C BC #### [facility] [address] [place] [address] Dr. Wilder Sandoval GLYCOHEMOGLOBIN A1Con 2021 ADA RECOMMENDATION SEE BELOW Normal [facility] Comment on above: Result Comment: ADA RECOMMENDED LIMIT 4.0 - 6.0 ADA THERAPEUTIC TARGET < 7.0 ACTION SUGGESTED > 7.0 Performed By: #### A 1C #### [facility] [address] [place] [address] Dr. Wilder Sandoval Glucose [Mass/Vol] 91 mg/dL Normal [facility] Comment on above: Performed By: #### A 1C #### [facility] [address] [place] [address] Dr. Wilder Sandoval HbA1c (Bld) [Mass fraction] 4.8 % Normal 4.5-6.2 [facility] Comment on above: Performed By: #### A 1C #### [facility] [address] [address] [address] Wilder Sandoval LIPID PROFILEon 04-21-2022 CHOL-HDL RATIO NORM SEE BELOW Normal [facility] Comment on above: Result Comment: 3.3 - 4.4 LOW RISK 4.4 - 7.1 AVERAGE RISK 7.1 - 11.0 MODERATE RISK >11.0 HIGH RISK Performed By: #### T SH, LIPID, CMP #### [facility] [address] [address] [address] Wilder Sandoval Cholesterol [Mass/Vol] 216 mg/dL Critically high <=200 [facility] Comment on above: Performed By: #### T SH, LIPID, CMP #### [facility] [address] [address] [address] Wilder Sandoval Cholesterol in HDL [Mass/Vol] 45 mg/dL Normal 40-60 [facility] Comment on above: Performed By: #### T SH, LIPID, CMP #### [facility] [address] [address] [address] Wilder Sandoval Cholesterol in LDL [Mass/Vol] 141.2 mg/dL Normal [facility] Comment on above: Performed By: #### T SH, LIPID, CMP #### [facility] [address] [address] [address] Wilder Sandoval Cholesterol.total/Ch olesterol in HDL [Mass ratio] 4.8 {ratio} Normal [facility] Comment on above: Performed By: #### T SH, LIPID, CMP #### [facility] [address] [address] [address] Wilder Sandoval HDL NORMAL > or = 60 mg/dl - LOW CARDIOVASCULAR RISK <40 mg/dl - HIGH CARDIOVASCULAR RISK Normal [facility] Comment on above: Performed By: #### T SH, LIPID, CMP #### [facility] [address] [address] [address] Wilder Sandoval LDL CALC NORMAL SEE BELOW Normal [facility] Comment on above: Result Comment: <100 mg/dl OPTIMAL 100 - 129 mg/dl NEAR OR ABOVE OPTIMAL 130 - 159 mg/dl BORDERLINE HIGH 160 - 189 mg/dl HIGH >190 mg/dl VERY HIGH Performed By: #### T ANDREA, LIPID, CMP #### [facility] [address] [place] [address] Dr. Wilder Sandoval Triglyceride [Mass/Vol] 149 mg/dL Normal <=150 [facility] Comment on above: Performed By: #### T ANDREA, LIPID, CMP #### [facility] [address] [place] [address] Dr. Wilder Sandoval VLDL CALC 29.8 mg/dL Normal [facility] Comment on above: Performed By: #### T ANDREA LIPID, CMP #### [facility] [address] [place] [address] Dr. Wilder Sandoval PROF 14(COMP METB)on 022 Albumin [Mass/Vol] 3.9 g/dL Normal 3.4-5.0 [facility] Comment on above: Performed By: #### T ANDREA LIPID, CMP #### [facility] [address] [place] [address] Dr. Wilder Sandoval Albumin/Globulin [Mass ratio] 1.2 {ratio} Normal [facility] Comment on above: Performed By: #### T ANDREA LIPID, CMP #### [facility] [address] [place] [address] Dr. Wilder Sandoval ALP [Catalytic activity/Vol] 72 U/L Normal 46-116 [facility] Comment on above: Performed By: #### T ANDREA, LIPID, CMP #### [facility] [address] [place] [address] Dr. Wilder Sandoval ALT [Catalytic activity/Vol] 32 U/L Normal 14-59 [facility] Comment on above: Performed By: #### T ANDREA, LIPID, CMP #### [facility] [address] [place] [address] Dr. Wilder Sandoval Anion gap [Moles/Vol] 12.2 mmol/L Normal [facility] Comment on above: Performed By: #### T ANDREA, LIPID, CMP #### [facility] [address] [place] [address] Dr. Wilder Sandoval AST [Catalytic activity/Vol] 12 U/L Critically low 15-37 [facility] Comment on above: Performed By: #### T SH, LIPID, CMP #### [facility] [address] [place] [address] Dr. Wilder Sandoval Bilirubin [Mass/Vol] 0.3 mg/dL Normal 0.2-1.0 [facility] Comment on above: Performed By: #### T SH, LIPID, CMP #### [facility] [address] [place] [address] Dr. Wilder Sandoval Calcium [Mass/Vol] 8.6 mg/dL Normal 8.5-10.1 [facility] Comment on above: Performed By: #### T SH, LIPID, CMP #### [facility] [address] [place] [address] Dr. Wilder Sandoval Chloride [Moles/Vol] 104 mmol/L Normal 98-107 [facility] Comment on above: Performed By: #### T SH, LIPID, CMP #### [facility] [address] [place] [address] Dr. Wilder Sandoval CO2 [Moles/Vol] 27.7 mmol/L Normal 21.0-32.0 [facility] Comment on above: Performed By: #### T SH, LIPID, CMP #### [facility] [address] [place] [address] Dr. Wilder Sandoval Creatinine [Mass/Vol] 0.70 mg/dL Normal 0.55-1.02 [facility] Comment on above: Performed By: #### T SH, LIPID, CMP #### [facility] [address] [place] [address] Dr. Wilder Sandoval EGFR-AF MOSOTHO >60 Normal >=60 [facility] Comment on above: Performed By: #### T SH, LIPID, CMP #### [facility] [address] [place] [address] Dr. Wilder Sandoval EGFR-NON AF MOSOTHO >60 Normal >=60 [facility] Comment on above: Performed By: #### T SH, LIPID, CMP #### [facility] [address] [address] [address] Wilder Sandoval Globulin (S) [Mass/Vol] 3.3 g/dL Normal [facility] Comment on above: Performed By: #### T SH, LIPID, CMP #### [facility] [address] [address] [address] Wilder Sandoval Glucose [Mass/Vol] 84 mg/dL Normal 74-106 [facility] Comment on above: Performed By: #### T SH, LIPID, CMP #### [facility] [address] [place] [address] Dr. Wilder Sandoval Potassium [Moles/Vol] 3.9 mmol/L Normal 3.5-5.1 [facility] Comment on above: Performed By: #### T ANDREA, LIPID, CMP #### [facility] [address] [place] [address] Dr. Wilder Sandoval Protein [Mass/Vol] 7.2 g/dL Normal 6.4-8.2 [facility] Comment on above: Performed By: #### T ANDREA, LIPID, CMP #### [facility] [address] [place] [address] Dr. Wilder Sandoval Sodium [Moles/Vol] 140 mmol/L Normal 136-145 [facility] Comment on above: Performed By: #### T ANDREA, LIPID, CMP #### [facility] [address] [place] [address] Dr. Wilder Sandoval Urea nitrogen [Mass/Vol] 12.0 mg/dL Normal 7.0-18.0 [facility] Comment on above: Performed By: #### T SH, LIPID, CMP #### [facility] [address] [place] [address] Dr. Wilder Sandoval Urea nitrogen/Creatinine [Mass ratio] 17.1 mg/mg Normal [facility] Comment on above: Performed By: #### T SH, LIPID, CMP #### [facility] [address] [place] [address] Dr. Wilder Sandoval TSHon 04-21-2022 TSH 6.292 uIU/mL Critically high 0.358-3.740 [facility] Comment on above: Performed By: #### T SH, LIPID, CMP #### [facility] [address] [place] [address] Dr. Wilder Sandoval A1C HEMOGLOBINon 03-20-2022 HbA1c (Bld) [Mass fraction] 5.0 % [employer] Other HbA1c (Bld) [Mass fraction]o n 03-20-2022 A1C HEMOGLOBIN [facility] [employer] Other Vital Signs Date Time Vital Sign Value Performing Clinician Facility 02-22-2024 08:32-0400 Body height 167.64 cm [facility] 02-22-2024 08:32-0400 Body mass index (BMI) [Ratio] 42.6 kg/m2 [facility] 02-22-2024 08:32-0400 Body weight 119.74 kg [facility] 02-22-2024 08:32-0400 Diastolic blood pressure 89 mm[Hg] [facility] 02-22-2024 08:32-0400 Heart rate 86 /min [facility] 02-22-2024 08:32-0400 Systolic blood pressure 144 mm[Hg] [facility] 08-13-2022 11:30-0400 Body height 167.64 cm Paloma Fitt Other [employer] Other 08-13-2022 11:30-0400 Body mass index (BMI) [Ratio] 44.57 kg/m2 Paloma Fitt Other [employer] Other 08-13-2022 11:30-0400 Body weight 125.28 kg Paloma Fitt Other [employer] Other 07-28-2022 09:30-0400 Body height 167.64 cm Zach Liu Other [employer] Other 07-28-2022 09:30-0400 Body mass index (BMI) [Ratio] 44.35 kg/m2 Zach Liu Other [employer] Other 07-28-2022 09:30-0400 Body weight 124.65 kg Zach Liu Other [employer] Other 07-28-2022 09:30-0400 Diastolic blood pressure 70 mm[Hg] Zach Liu Other [employer] Other 07-28-2022 09:30-0400 Respiratory rate 18 /min Zach Liu Other [employer] Other 07-28-2022 09:30-0400 SaO2% (BldA) [Mass fraction] 97 % Zach Liu Other [employer] Other 07-28-2022 09:30-0400 Systolic blood pressure 126 mm[Hg] Zach Liu Other [employer] Other 06-16-2022 09:15-0400 Body height 167.64 cm Zach Liu Other [employer] Other 06-16-2022 09:15-0400 Body mass index (BMI) [Ratio] 45.22 kg/m2 Zach Liu Other [employer] Other 06-16-2022 09:15-0400 Body weight 127.1 kg Zach Liu Other [employer] Other 06-16-2022 09:15-0400 Diastolic blood pressure 79 mm[Hg] Zach Housediff Other [employer] Other 06-16-2022 09:15-0400 Respiratory rate 18 /min Zach Liu Other [employer] Other 06-16-2022 09:15-0400 SaO2% (BldA) [Mass fraction] 97 % Zach Liu Other [employer] Other 06-16-2022 09:15-0400 Systolic blood pressure 143 mm[Hg] Zach Liu Other [employer] Other 05-05-2022 09:30-0400 Body height 167.64 cm Zach Liu Other [employer] Other 05-05-2022 09:30-0400 Body mass index (BMI) [Ratio] 45.95 kg/m2 Zach Housediff Other [employer] Other 05-05-2022 09:30-0400 Body weight 129.14 kg Zach Liu Other [employer] Other 05-05-2022 09:30-0400 Diastolic blood pressure 78 mm[Hg] Zach Housediff Other [employer] Other 05-05-2022 09:30-0400 Respiratory rate 18 /min Zach Liu Other [employer] Other 05-05-2022 09:30-0400 SaO2% (BldA) [Mass fraction] 100 % Zach Housediff Other [employer] Other 05-05-2022 09:30-0400 Systolic blood pressure 148 mm[Hg] Zach Liu Other [employer] Other 05-01-2022 08:15-0400 Body height 167.64 cm Paloma Fitt Other [employer] Other 05-01-2022 08:15-0400 Body mass index (BMI) [Ratio] 45.48 kg/m2 Paloma Fitt Other [employer] Other 05-01-2022 08:15-0400 Body weight 127.82 kg Paloma Fitt Other [employer] Other 03-20-2022 09:45-0400 Body height 167.64 cm Zach Liu Other [employer] Other 03-20-2022 09:45-0400 Body mass index (BMI) [Ratio] 47.37 kg/m2 Zach Liu Other [employer] Other 03-20-2022 09:45-0400 Body weight 133.13 kg Zach Liu Other [employer] Other 03-20-2022 09:45-0400 Diastolic blood pressure 87 mm[Hg] Zach Liu Other [employer] Other 03-20-2022 09:45-0400 Respiratory rate 18 /min Zach Liu Other [employer] Other 03-20-2022 09:45-0400 SaO2% (BldA) [Mass fraction] 98 % Zach Liu Other [employer] Other 03-20-2022 09:45-0400 Systolic blood pressure 153 mm[Hg] Zach Liu Other [facility] [employer] Other Encounters Encounter Date Encounter Type Care Provider Facility Start: 02-22-2024 Patient encounter status [facility] Start: 02-22-2024 End: 02-22-2024 ambulatory [facility] Work Phone: Start: 02-22-2024 End: 02-22-2024 Encounter for general adult medical examination without abnormal findings [facility] Start: 02-22-2024 End: 02-22-2024 Patient encounter procedure [facility] Work Phone: Start: 02-01-2024 End: 02-01-2024 ambulatory [facility] Work Phone: Start: 02-01-2024 End: 02-01-2024 Patient encounter procedure [facility] Work Phone: Start: 01-04-2024 End: 01-04-2024 ambulatory RAMON VOGT Not Available Start: 12-18-2023 Non-patient / Non-visit [facility] [employer] Work Phone: Start: 11-11-2023 End: 11-11-2023 ambulatory LEONARD WONG V Not Available Start: 11-02-2023 End: 11-02-2023 ambulatory Leonard Wong Facility:[facility] Start: 11-02-2023 End: 11-02-2023 ambulatory MD Leonard Wong Work Phone: [facility] Work Phone: Start: 11-02-2023 End: 11-02-2023 Departed Referred MD Leonard Wong Work Phone: [facility] [place] Work Phone: Start: 10-26-2023 End: 10-26-2023 ambulatory LEONARD WONG V Not Available Start: 09-25-2023 End: 09-25-2023 ambulatory LEONARD MORALESEMIR Juares Not Available Start: 09-17-2023 End: 09-17-2023 ambulatory Victoria Trimble Other [employer] Other Start: 09-17-2023 Telephone encounter Victoria Nai [facility] Start: 07-20-2023 End: 07-20-2023 ambulatory Victoria Trimble Facility:[facility] Start: 06-29-2023 End: 06-29-2023 ambulatory Victoria Trimble Other [employer] Other Start: 06-29-2023 Telephone encounter Victoria Nai [facility] Start: 05-18-2023 End: 05-18-2023 ambulatory Collin Martin Other [employer] Other Start: 05-18-2023 Telephone encounter Collin Martin [facility] Start: 04-27-2023 End: 04-27-2023 ambulatory Victoria Trimble Other [employer] Other Start: 04-27-2023 Telephone encounter Victoria Nai [facility] Start: 04-24-2023 End: 04-24-2023 ambulatory Victoria Nai Other [employer] Other Start: 04-24-2023 Telephone encounter Victoria Nai [facility] Start: 03-19-2023 End: 03-19-2023 ambulatory Victoria Trimble Other [employer] Other Start: 03-19-2023 Telephone encounter Victoria Nai [facility] Start: 02-10-2023 End: 02-10-2023 ambulatory Victoria Trimble Other [employer] Other Start: 02-10-2023 Telephone encounter Victoria Nai [facility] Start: 02-09-2023 End: 02-09-2023 ambulatory Victoria Trimble Other [employer] Other Start: 02-09-2023 Telephone encounter Victoria Trimble [facility] Start: 02-03-2023 ambulatory ABIMBOLA YUAN Faci lity:[facility] Start: 02-02-2023 End: 02-02-2023 ambulatory Victoria Trimble Other [employer] Other Start: 02-02-2023 Telephone encounter Victoria Trimble [facility] Start: 12-23-2022 IBT for Obesity subQ 15 min (Max charge 2 units) [facility] Start: 12-23-2022 End: 12-24-2022 ambulatory Zach Liu [employer] Other Start: 12-02-2022 End: 12-02-2022 ambulatory Victoria Trimble Other [employer] Other Start: 12-02-2022 Telephone encounter Victoria Trimble [facility] Start: 12-01-2022 End: 12-01-2022 ambulatory Victoria Trimble Other [employer] Other Start: 12-01-2022 Telephone encounter Victoria Trimble [facility] Start: 11-05-2022 End: 11-05-2022 ambulatory Victoria Trimble Other [employer] Other Start: 11-05-2022 Telephone encounter Victoria Trimble [facility] Start: 11-04-2022 End: 11-04-2022 ambulatory Victoria Trimble Other [employer] Other Start: 11-04-2022 Telephone encounter Victoria Trimble [facility] Start: 10-21-2022 ([facility] RD FU) [facility] F/ U [employer] [facility] Start: 10-21-2022 End: 10-21-2022 ambulatory Paloma Jerrycinthia Other [employer] Other Start: 09-30-2022 Adult health examination Sauravmariam Martin Other [employer] Other Start: 09-30-2022 Gynecological examination normal Collin Martin Other [employer] Other Start: 08-14-2022 End: 08-15-[address] VERONIKA DUBOSE . Facility: Start: 08-13-2022 ([facility] FU) [facility] F/ U [employer] Paloma Sagastume [facility] Start: 08-13-2022 End: 08-13-2022 ambulatory Paloma Sagastume Other [employer] Other Start: 07-28-2022 End: 07-28-2022 ambulatory Zach Liu Other [employer] Other Start: 07-28-2022 Follow-up encounter Zach huyn[facility] Start: 07-23-2022 End: 07-23-2022 ambulatory Zach Liu Other [employer] Other Start: 07-23-2022 Telephone encounter Zach Rg [facility] Start: 06-16-2022 (Televisit) Televisit Zach Liu [facility] Start: 06-16-2022 End: 06-16-2022 ambulatory Zach Liu Other [employer] Other Start: 06-11-2022 End: 06-11-2022 ambulatory Zach Liu Other [employer] Other Start: 06-11-2022 Telephone encounter Zach Rg [facility] Start: 05-05-2022 End: 05-05-2022 ambulatory Zach Liu Other [employer] Other Start: 05-05-2022 Follow-up encounter Zach krishnamurthy [facility] Start: 05-01-2022 ([facility] FU) [facility] F/ U [employer] Paloma Sagastume [facility] Start: 05-01-2022 End: 05-01-2022 ambulatory Paloma Sagastume Other [employer] Other Start: 04-25-2022 Encounter for genera l adult medical examination without abnormal findings DR VICTORIA TRIMBLE [facility] Start: 04-22-2022 End: 04-23-2022 ambulatory YASMANY JOHANA Facility:[facility] Start: 04-21-2022 End: 04-22-[address] VICTORIA TRIMBLE Facility:[facility] Start: 04-21-2022 End: 04-22-2022 Encounter for general adult medical examination without abnormal findings DR VICTORIA TRIMBLE Facility:[facility] Start: 03-20-2022 End: 03-20-2022 ambulatory Zach Liu Other [employer] Other Start: 03-20-2022 Follow-up encounter Zach krishnamurthy [facility] Procedures Date Procedure Procedure Detail Performing Clinician Insertion of intraut erine contraceptive device Collin Martin Other School admission med ical examination Collin Martin Other Screening for malign ant neoplasm of breast Collin Martin Other Plan of Treatment Date Care Activity Detail Author Comprehensive metabo lic 2000 panel - Serum or Plasma [facility] enter MG Breast - bilateral Screening [facility] Microalbumin [Mass/volume] in Urine [facility] Payers Date Payer Category Payer Unknown [id number] 2022 [facility] [id number] 2022 Self-pay [id number] 2019 Unknown [id number] 2. [id number] 1972 Unknown [id number] 2.16.84 0.1.649103.3.579.2.593 1972 Unknown [id number] 2.16.84 0.1.646604.3.579.2.593 1972 Unknown [id number] 2.16.84 0.1.770180.3.579.2.593 1972 Unknown [id number] 2.16.84 0.1.232333.3.579.2.1259 1972 Unknown [id number] 2.16.84 0.1.044374.3.579.2.1259 1972 Unknown [id number] 2.16.84 0.1.086214.3.579.2.1259 1972 Unknown [id number] 2.16.840 .1.040740.3.579.2.1259 1972 Unknown [id number] 2.16.840 .1.151024.3.579.2.1259 1959 Self-pay [id number] Unknown [id number] 2.16.84 0.1.771970.3.579.2.593 Unknown [id number] 2.16.8 40.1.919122.3.579.2.531 Unknown [id number] 2.16.8 40.1.818091.3.579.2.531 Unknown [id number] 2.16.8 40.1.649617.3.579.2.531 Social History Date Type Detail Facility Unknown if ever smoked [employer] Other Sex Assigned At Sex Assigned At Bir th [employer] Other Start: 1970 Sex Assigned At Female F [facility] Clinical Notes 03-20-2022 to 12-23-2022 Note Date & Type Note Facility 12-23-2022 Evaluation note Encounter Date Diagnosis Assessment Notes Dec, Obesity (ICD-10 - E66.9) Dec, BMI 40.0-44.9, adult (ICD-10 - Z68.41) Dec, Other Summary of Visit: (A) Unsaturated vs saturated fats (B) Cholesterol education (increasing fiber/unsat fats and decreasing sat fats) (C) Importance of not skipping meals Other Relevant Information: -found a low carb tortilla that she likes-uses avocado oil plant based butter-was not feeling well today and had just worked all night so was not able to dedicate full attention to nutrition education Patient set the following goals:1) Switch to skim or 1% milk to lower sat fat intake and decrease LDL cholesterol (nonfat yogurt, lower fat cheese) 2) If going more than 3-4 hours between meals, have a snack with protein + 1 other plate category [employer] Other 01-03-2023 Evaluation note* Encounter Date Diagnosis Assessment Notes Treatment Notes Treatment Clinical Notes Oct, Obesity (ICD-10 - E66.9) Oct, BMI 40.0-44.9, adult (ICD-10 - Z68.41) Oct, Other Summary of Visi t: (A) Snack ideas; revisited importance of protein (B) Meal prepping ideas; importance of planning ahead (C) Importance of adding fiber to reduce constipation Patient set the following goals: A) Bring snacks to work everyday to avoid purchasing foods at work B) Prepare snacks ahead of time on weekends to have as grab and go to take to work (boiled eggs, string cheese) -Ex: buy eggs already boiled, have fair life protein shakes on hand to grab, wash fruit ahead of time and portion it into containers C) Continue thinking about purchasing a treadmill to increase physical activity [employer] Other 10-26-2022 Evaluation note* Encounter Date Diagnosis Assessment Notes Treatment Notes Treatment Clinical Notes Jul, Obesity (ICD-10 - E66.9) Jul, BMI 40.0-44.9, adult (ICD-10 - Z68.41) Jul, Other Summary of Visi t: (A) importance of adding veggies (B) reviewed meal timing (C) meal prepping ahead of time Relevant Information:-Jose nt mentioned that she is tired of the Premier protein shakes and does not always like the flavor. She does not like protein bars so that is not an option. She still wants something quick and easy so we discussed bulking up the protein shakes with frozen fruit and turning them into smoothies. Ex: 1/2 frozen banana + cocoa powder + coffee flavored premier protein shake or 1 frozen apple + vanilla premier protein shake + cinnamon-Provided patient with a ground turkey/vegetable soup recipe. She plans to double the vegetable serving so she is increasing intake without having extra veggies on the side Patient set the following goals: 1 Month Goals -double veggie portions -freeze leftovers -try adding frozen fruit to premier protein shakes and blending [employer] Other 10-10-2022 Evaluation note* Encounter Date Diagnosis Assessment Notes Treatment Notes Treatment Clinical Notes Jul, Hypertension (ICD-10 - I10) Jul, BMI 40.0-44.9, adult (ICD-10 - Z68.41) Jul, Impaired fasting glucose (ICD-10 - R73.01) Jul, Mixed hyperlipidemia (ICD-10 - E78.2) Jul, Metabolic syndrome (ICD-10 - E88.81) Jul, Knee osteoarthritis (ICD-10 - M17.9) Jul, Depression, unspecified depression type (ICD-10 - F32.9) [employer] Other 08-29-2022 Evaluation note* Encounter Date Diagnosis Assessment Notes Treatment Notes Treatment Clinical Notes May, Hypertension (ICD-10 - I10) May, Body mass index (BMI ) of 45.0-49.9 in adult (ICD-10 - Z68.42) May, Impaired fasting glucose (ICD-10 - R73.01) May, Mixed hyperlipidemia (ICD-10 - E78.2) May, Metabolic syndrome (ICD-10 - E88.81) May, Knee osteoarthritis (ICD-10 - M17.9) May, Depression, unspecified depression type (ICD-10 - F32.9) [employer] Other 07-18-2022 Evaluation note* Encounter Date Diagnosis Assessment Notes Treatment Notes Treatment Clinical Notes Apr, Hypertension (ICD-10 - I10) Apr, Body mass index (BMI ) of 45.0-49.9 in adult (ICD-10 - Z68.42) Apr, Impaired fasting glucose (ICD-10 - R73.01) Apr, Mixed hyperlipidemia (ICD-10 - E78.2) Apr, Metabolic syndrome (ICD-10 - E88.81) Apr, Knee osteoarthritis (ICD-10 - M17.9) Apr, Depression, unspecified depression type (ICD-10 - F32.9) [employer] Other 07-14-2022 Evaluation note* Encounter Date Diagnosis Assessment Notes Treatment Notes Treatment Clinical Notes Apr, Obesity (ICD-10 - E66.9) Apr, BMI 45.0-49.9, adult (ICD-10 - Z68.42) Apr, Other Summary of Visi t: (A) reviewed plate method and ways to increase fruits and veggies (B) finding easy ways to create new habits; using routine to solidify healthy habits (C) finding sustainability and balance for lifelong changes Patient set the following goals: - NEW work on increasing water intake- aiming for 2 bottles while at work - NEW: continue to increase fruit and veggie intake [employer] Other 07-06-2022 NotePROCEDURE: XR ANKLE RT MIN 3 VIEWS HISTORY: Pain of right ankle joint ; follow-up posterior right ankle pain COMPARISON: XR ankle right 11/29/2020 FINDINGS: BONES:Asymmetric mild narrowing of the lateral aspect of the tibiotalar joint. No fracture, dislocation, bone lesion. Flattening of the plantar arch. Small degenerative enthesophytes at the Achilles tendon and plantar aponeurosis insertions into the calcaneus. SOFT TISSUES:No visible soft tissue swelling. EFFUSION:None visible. OTHER: Negative. IMPRESSION: 1. Stable mild/moderate degenerative changes. 2. No acute or specific abnormality to account for patient's symptoms. Electronically authenticated by: MADHURI ANGLIN Date: 2022-04-23 09:20[id number] Evaluation note* Encounter Date Diagnosis Assessment Notes Treatment Notes Treatment Clinical Notes Mar, Hypertension (ICD-10 - I10) Mar, Body mass index (BMI ) of 45.0-49.9 in adult (ICD-10 - Z68.42) Mar, Impaired fasting glucose (ICD-10 - R73.01) Mar, Mixed hyperlipidemia (ICD-10 - E78.2) Mar, Metabolic syndrome (ICD-10 - E88.81) Mar, Knee osteoarthritis (ICD-10 - M17.9) Mar, Depression, unspecified depression type (ICD-10 - F32.9) [employer] Other Evaluation noteNo InformationNort [employer] Other Evaluation noteNo assessment information available [facility] Work Phone: Evaluation note* Diagnosis Onset Date Resolution Status Hyperlipidemia acute Hypertension acute Screening for colon cancer a cute Screening mammogram for breast cancer acute Wellness examination acute [facility] Work Phone: History general Narrative - Reported* Type Description Date Medical History hypothroidism Medical History hypertension Medical History anxiety Medical History chronic depression Medical History Esophageal reflux Medical History Arthritis Medical History hyperlipidemia Surgical History tubal ligation Surgical History Foot Surgery Surgical History knee scope bilatral [employer] [facility] [employer] Other Hospital Discharge instructionsAmbulatory Orders* AMB Cologuard Time Frame: 02/22/24, Location: Determined By Patient [facility] Work Phone: Summary Purpose Family History Relationship Condition Age at Onset Recorded Date/T sanchez family member Obesity Unknown father Heart disease Unknown History of stroke Unknown Hypertension Unknown Unknown grandparent Obesity Unknown Not Specified Heart disease Unknown Obesity Unknown Diabetes mellitus Unknown Advance Directives Advance Directive Response Recorded Date/ Time Advance Directives No March 26 0 2:39pm Advance Directive Response Recorded Date/ Time Advance Directives No March 26 0 3:39pm Chief Complaint and Reason for Visit Chief Complaint Amb Documentation UA - smells funny, cloudy Chief Complaint Amb Documentation UA - smells funny, cloudy med refills Reason for Visit Hyperlipidemia Hypertension Screening for colon cancer Screening mammogram for breast cancer Wellness examination Additional Source Comments REASON FOR VISIT (unrecogniz ed section and content) WMN DJr follow up Returning PtWMN RD follow upWMN f/upExercise ReferralWMN Dr follow upDC refill OzempicWMN f/uf/u with Rukhsana (used to be Brianna)No InformationPRESCRIPTION REFILLmedicationmedicationRefillMedicationWMN RD f/uRefillRefillRefillNo InformationRefillrefillRefillRefillREFILLRefill INFORMATION SOURCE (unrecogn ized section and content) DATE CREATED AUTHOR 01/26/2023 [facility] DATE CREATED AUTHOR AUTHOR'S ORGANIZ ATION 11/27/2023 [facility] DATE CREATED AUTHOR AUTHOR'S ORGANIZ ATION 01/04/2024 [facility] EPIC Goals (unrecognized section and content) Goals may be documented in a n alternate section Care Teams (unrecognized sec tion and content) Team Status: Inactive Member Role Status Dates Leonard Wong MD Attending Provider Active Team Status: Active Member Role Status Dates Victoria Trimble MD Primary Care Provider Active Team Status: Active Member Role Status Dates Victoria Trimble MD Primary Care Provider Active Start: December 18, 2023 BRENT Singh Attending Provider Active Start : December 18, 2023 Team Status: Inactive Member Role Status Dates Victoria Trimble MD Primary Care Provide r, Attending Provider Active Start: February 01, 2024 End: February 01, 2024 Team Status: Inactive Member Role Status Dates Victoria Trimble MD Primary Care Provide r, Attending Provider Active Start: February 22, 2024 End: February 22, 2024 FOR RECORDS PERTAINING TO PATIENTS WHO ARE OR HAVE BEEN ENROLLED IN A CHEMICAL DEPENDENCY/SUBSTANCEABUSE PROGRAM, SOME INFORMATION MAY BE OMITTED. This clinical summary was aggregated from multiple sources. Caution should be exercised in using it in the provision of clinical care. This summary normalizes information from multiple sources, and as a consequence, information in this document may materially change the coding, format and clinical context of patient data. In addition, data may be omitted in some cases. CLINICAL DECISIONS SHOULD BE BASED ON THE PRIMARY CLINICAL RECORDS. [facility] provides no warranty or guarantee of the accuracy or completeness of information in this document.
[2024-05-18] MEDS: CIPROFLOXACIN HCL/DEXAMETH 0.3%/0.1% OTIC SUSP 150 DROP/7.5 ML BOTTLE OT (10:23)
--- NOTE | 2024-05-18 11:07 | ED.EAR1 ---
HPI - Ear Problem General Chief complaint: Ear Stated complaint: EARACHE Time Seen by Provider: 05/18/24 09:25 Source: patient Mode of arrival: walk-in History of Present Illness HPI Narrative: 54-year-old female to the emergency department chief complaint of ear pain and swelling on the left side. Started over the last 48 hours. Hearing diminished on that side. No fever, sweats, chills. Otherwise at baseline health. Not diabetic. Related Data Home Medications ?Medication ?Instructions ?Recorded ?Confirmed alprazolam 0.5 mg tablet 0.5 mg PO TID PRN anxiety 01/05/24 05/18/24 amlodipine 5 mg tablet 5 mg PO DAILY 01/05/24 05/18/24 aspirin 81 mg chewable tablet 81 mg PO DAILY 01/05/24 05/18/24 (Aspirin Childrens) fluocinonide 0.05 % topical 1 applic topical DAILY 01/05/24 05/18/24 solution ketoconazole 2 % topical cream 1 applic topical DAILY 01/05/24 05/18/24 levothyroxine 175 mcg tablet 175 mcg PO DAILY 01/05/24 05/18/24 losartan 50 mg tablet 50 mg PO DAILY 01/05/24 05/18/24 metronidazole 1 % topical gel 1 applic topical DAILY 01/05/24 01/05/24 pantoprazole 40 mg tablet,delayed 40 mg PO DAILY 01/05/24 01/05/24 release Previous Rx's ?Medication ?Instructions ?Recorded prednisone 10 mg tablet See Rx Instructions .Route 01/05/24 .COMPLEX #30 tabs Allergies Allergy/AdvReac Type Severity Reaction Status Date / Time promethazine [From Phenergan] AdvReac Verified 01/05/24 06:44 Review of Systems ROS Status of ROS 10 or more systems reviewed and unremarkable except as noted in history and below Exam Narrative Exam Narrative: VITALS: I have reviewed the triage vital signs. GENERAL: Well developed, well appearing adult in no acute distress. NEURO: Alert and oriented. Moves all extremities. Face is symmetric and expressive. EYES: PERRL. No scleral icterus or conjunctival injection. No discharge. HENT: Normocephalic, atraumatic. Hearing is grossly intact. Nares grossly patent and without discharge. Mucous membranes moist. Left ear canal edematous, purulent material and debris. No significant surrounding cellulitis. NECK: No JVD. Patient moves neck without restriction. EXTREMITIES: Symmetric muscle bulk. No joint swelling. No clubbing, cyanosis, or deformity. SKIN: Warm and dry. Normal turgor. No rash or lesions appreciated. PSYCH: Mood, affect, and interaction is appropriate to the setting. Constitutional Vital Signs, click to edit/add: Last Vital Signs Temp 97.6 F 05/18/24 09:15 Pulse 92 H 05/18/24 09:15 Resp 16 05/18/24 09:15 BP 159/94 H 05/18/24 09:15 Pulse Ox 95 05/18/24 09:15 Course Vital Signs Vital signs: Vital Signs Temperature 97.6 F 05/18/24 09:15 Pulse Rate 92 H 05/18/24 09:15 Respiratory Rate 16 05/18/24 09:15 Blood Pressure 159/94 H 05/18/24 09:15 Pulse Oximetry 95 05/18/24 09:15 Temperature 97.6 F 05/18/24 09:15 Pulse Rate 92 H 05/18/24 09:15 Respiratory Rate 16 05/18/24 09:15 Blood Pressure 159/94 H 05/18/24 09:15 Pulse Oximetry 95 05/18/24 09:15 Medical Decision Making MDM Narrative Medical decision making narrative: 54-year-old female with obvious left-sided otitis externa. There is significant canal edema. A wick was placed. Ciprodex was instilled. No Perichondritis/cellulitis/malignant otitis externa. Ciprodex bottle was given to the patient. Ciprodex instructions were given. Which instructions were given. She will follow-up with her PCP. Return precautions were discussed. All questions were answered. Patient was discharged home. [facility] Otitis Externa #93 - Acute Otitis Externa (AOE): Systemic Antimicrobial Therapy [x] The patient has Acute Otitis Externa and was not prescribed oral/systemic antibiotics today. [[facility]IS[facility] PERFORMANCE] Medical Records Medical records reviewed: Yes I reviewed the patient's medical records Discharge Plan Discharge Stand Alone Forms: Portal Instructions Chief Complaint: Ear Clinical Impression: Otitis externa Patient Disposition: Home, Self-Care Time of Disposition Decision: 10:22 Condition: Good Mode of Transportation: Private Vehicle Prescriptions / Home Meds: No Action alprazolam 0.5 mg tablet 0.5 mg PO TID PRN (Reason: anxiety) Hold Instructions: dc amlodipine 5 mg tablet 5 mg PO DAILY fluocinonide 0.05 % solution 1 applic TOPICAL DAILY levothyroxine 175 mcg tablet 175 mcg PO DAILY losartan 50 mg tablet 50 mg PO DAILY pantoprazole 40 mg tablet,delayed release (DR/EC) 40 mg PO DAILY metronidazole 1 % gel 1 applic TOPICAL DAILY ketoconazole 2 % cream 1 applic TOPICAL DAILY aspirin [Aspirin Childrens] 81 mg tablet,chewable 81 mg PO DAILY prednisone 10 mg tablet See Rx Instructions .ROUTE .COMPLEX Qty: 30 0RF Rx Instructions: 4 by mouth daily for three days then 3 by mouth daily for three days then 2 by mouth daily for three days then 1 by mouth daily for three days Print Language: Guatemalan Instructions: Swimmer's Ear (ED) Additional Instructions: 4 drops twice daily for 7-10 days Referrals: Victoria Lang MD [Primary Care Provider] - 1 week Discharge Date/Time: 05/18/24 11:04
== END 2024-05-18 11:04 | disposition home or self-care (01) ==
PROVIDERS: Emergency Provider Student in an Organized Health Care Education/Training Program; PCP Family Medicine
DX: H60.92 Unspecified otitis externa, left ear (principal)
CPT/HCPCS: 99283